=== PATIENT | female | born 1990 | race Caucasian/White ===

== ENCOUNTER → 2016-08-27 | Outpatient (CLI) | payer BC ==
[~2016-08-27] MED LIST: IOHEXOL 300 MG/ML 75 ML VIAL IV ONE
--- NOTE | 2016-08-27 15:15 | RAD ---
CT of the abdomen and pelvis with contrast, 08/27/2016: History: Severe abdominal pain Multidetector CT imaging was performed following oral and IV administration of contrast. The liver, gallbladder, pancreas, spleen and both kidneys are unremarkable. No abdominal or pelvic adenopathy is seen. The bowel loops are not dilated. The appendix is not clearly visualized. No dilated appendix or pericecal inflammatory process is seen. No free fluid or free air is evident in the abdomen or pelvis. IMPRESSION: No acute abdominal or pelvic abnormality is detected. PQRS Compliance Statement: One or more of the following individualized dose reduction techniques were utilized for this examination: 1. Automated exposure control 2. Adjustment of the mA and/or kV according to patient size 3. Use of iterative reconstruction technique
== END | disposition home or self-care (01) ==
LOC: CT 12:50
PROVIDERS: ATTEND Internal Medicine Gastroenterology
DX: R10.9 Unspecified abdominal pain (principal)
CPT/HCPCS: 74177; Q9967

== ENCOUNTER → 2016-09-16 | Outpatient (CLI) | payer BC ==
[~2016-09-16] MED LIST changes: +BARIUM SULFATE 60% 355 ML SUSP PO ONE; +CARV3.122 PO; +DICY10CA53 PO; +DROS1TAB2 PO; -IOHEXOL 300 MG/ML 75 ML VIAL IV ONE
--- NOTE | 2016-09-16 11:06 | RAD ---
Small bowel series, 09/16/2016: History: Abdominal pain, bloating, diarrhea and vomiting The preliminary abdominal image demonstrates a moderate amount of stool in the right colon. The abdominal gas pattern is otherwise unremarkable. Overhead and spot films were obtained following oral ingestion of liquid barium. 0.2 minutes of fluoroscopy time is utilized. 2 fluoroscopic spot images were recorded. The small bowel loops are of normal caliber with no evidence of thickening of their folds. There is normal transit of the barium through the small bowel to the colon. The terminal ileum is well visualized and shows no abnormality. \ IMPRESSION: No significant small bowel abnormality is detected.
== END | disposition home or self-care (01) ==
LOC: RAD 07:48
PROVIDERS: ATTEND Internal Medicine Gastroenterology
DX: R10.9 Unspecified abdominal pain (principal)
CPT/HCPCS: 74250

== ENCOUNTER → 2017-06-05 | Day surgery (SDC) | payer OTHER, BC ==
[~2017-06-05] MED LIST changes: -BARIUM SULFATE 60% 355 ML SUSP PO ONE; -CARV3.122 PO; -DICY10CA53 PO; -DROS1TAB2 PO; +HYDROmorphone 2 MG/ML VIAL IV; +LIDOCAINE 1% PF 2 ML VIAL. ID; +MORPHINE SULFATE 2 MG/ML DISP.SYRIN. IV; +ONDANSETRON PF 4 MG/2 ML VIAL. IV; +PROCHLORPERAZINE 10 MG/2 ML VIAL. IV; +PROPOFOL 20 ML IV; +PROPOFOL 40 ML IV; +fentaNYL PF VIAL 100 MCG/2 ML VIAL IV
[2017-06-05 12:01] LABS: NEG OBC UR NEG; POS OBC UR POS
[2017-06-05] MEDS: IV RINGERS,LACTATED 1000ML 1,000 ML IV (12:05)
== END | disposition home or self-care (01) ==
LOC: ENDOS 11:24
DX: K64.0 First degree hemorrhoids (principal); K21.9 Gastro-esophageal reflux disease without esophagitis; Z91.040 Latex allergy status; Z79.899 Other long term (current) drug therapy
CPT/HCPCS: 45380; 81025; 88305; J2704